=== PATIENT | male | born 1975 | race Caucasian/White ===

== ENCOUNTER 2020-12-29 14:34 | Emergency (ER) | payer OTHER, SELFPAY ==
--- NOTE | 2020-12-29 | ECG_ITS ---
Test Reason : ASTHMA Blood Pressure : / mmHG Vent. Rate : 065 BPM Atrial Rate : 065 BPM P-R Int : 118 ms QRS Dur : 094 ms QT Int : 390 ms P-R-T Axes : 042 050 045 degrees QTc Int : 405 ms Normal sinus rhythm RSR' or QR pattern in V1 suggests right ventricular conduction delay Otherwise normal ECG No previous ECGs available Referred By: Generic ED Physician Electronically Signed By:JUNI KAUR MD
--- NOTE | ~2020-12-29 | XR_ITS ---
EXAMINATION: XR chest 2V CLINICAL INFORMATION: Reason for Exam asthma COMPARISON: No prior chest x-ray available in our system for comparison at the time of this dictation. TECHNIQUE: XR chest 2V Lungs and Yakelin: Both lungs are clear. Pleura: Normal. Costophrenic angles are sharp. No pneumothorax. Heart: The heart is normal in size. Mediastinum: The mediastinum is within normal limits.. Bones: Skeletal structures included are normal for patient's age. XR/XR chest 2V IMPRESSION: No radiographic evidence of acute cardiopulmonary disease.
[2020-12-29 15:15] VITALS: BP 115/71; PULSE 80; RESP 18; TEMP 36.5; O2SAT 98; BMI 26.4
[2020-12-29 18:44] LABS: COVID-19 Test Negative (Negative); IDNOW Serial# 9DD0AD1C
--- NOTE | 2020-12-29 20:53 | ED.ASTHMA ---
HPI - Asthma General Chief Complaint: Asthma Stated Complaint: cough, chest wall pain, sob, hx of asthma Time Seen by Provider: 12/29/20 20:41 Source: patient Mode of arrival: ambulatory Limitations: no limitations History of Present Illness HPI Narrative: Patient comes emergency room complaining of asthma exacerbation. Patient states that he ran out of his albuterol inhaler. Patient states he has plenty albuterol liquid form for his neb treatment. Patient went to work since 2 in the morning, patient has not had any breathing treatment since then. Patient denies fever or chills. Patient started with a mild URI, states he has a young knees that has a URI and everybody in the family got it as well Related Data Previous Rx's Medication Instructions Recorded albuterol sulfate 90 mcg/actuation 2 puff INHALATION Q4-6H PRN #6.7 g 12/29/20 aerosol inhaler guaifenesin 400 mg tablet 400 mg PO Q4H PRN #10 tab 12/29/20 prednisone 50 mg tablet 50 mg PO DAILY #4 tab 12/29/20 Allergies Allergy/AdvReac Type Severity Reaction Status Date / Time Unable to Assess Allergy Verified 12/29/20 20:42 Review of Systems Review of Systems: Constitutional : No Weight loss, No Fever, No Chills, No Night Sweats, No Fatigue, No Malaise ENT/Mouth : No Hearing loss, No Ear Pain, No Nasal Congestion, No Sinus Pain, No Hoarseness, No sore throat, No Rhinorrhea, No Swallowing Difficulty Eyes: No Eye Pain, No Swelling, No Redness, No Foreign Body, No Discharge, No Vision Changes Cardiovascular : No Chest Pain, No SOB, No Dyspnea on Exertion, No Orthopnea, No Edema, No Palpitations Respiratory : Mild dry Cough, No Sputum, complaining of Wheezing, No Smoke Exposure, complaining of dyspnea Gastrointestinal : No Nausea, No Vomiting, No Diarrhea, No Constipation, No abdominal Pain, No Hematochezia, No Melena Genitourinary : no irregular bleeding, No Dysuria, No Urinary Frequency, No Hematuria, No Urinary Incontinence, No Urgency, No Flank Pain, No Urinary Flow Changes, No Hesitancy Musculoskeletal : No joint pain, No Myalgias, No Joint Swelling Skin : No Skin Lesions, No rash Neuro : No Weakness, No Numbness, No Paresthesias, No Loss of Consciousness, No Dizziness, No Headache Psych : No Anxiety/Panic, No Depression, No SI/HI/AH/VH, No Social Issues, Heme/Lymph: No Bruising, No Bleeding,No Lymphadenopathy Endocrine : No Polyuria, No Polydipsia, No Temperature Intolerance [facility] [place] Past Medical History Medical History (Updated 12/29/20 @ 22:46 by Anna Pastor MD) Asthma exacerbation Social History Social History Advance Directives: No Advance Directives Information Provided: No Physical Exam Vital Signs: Vital Signs: Last Vital Signs Temp 97.7 F 12/29/20 15:15 Pulse 80 12/29/20 22:25 Resp 18 12/29/20 15:15 BP 115/71 12/29/20 15:15 Pulse Ox 98 12/29/20 15:15 Body Mass Index 26.4 Const: Other: Appearance: Alert. Oriented X3. No acute distress. Eyes: Pupils equal, round and reactive to light. ENT: Pharynx normal. Neck: Normal inspection. Neck supple. No lymph nodes noted. No crepitus CVS: Normal heart rate and rhythm. Pulses normal. Normal S1 and S2 Respiratory: No respiratory distress. Bilateral wheezing, moderate air movement Abdomen: Soft and nontender. No rigidity. No distention. good BS x4 Skin: Skin warm and dry. Normal skin color. Normal skin turgor. Extremities: No lower extremity edema. No Lacerations. No Rash Neuro: Oriented X 3. No motor deficit. No sensory deficit. Moving all extermities. No slurred speech. Course Course Course Narrative: Patient received 1 albuterol treatment, Solu-Medrol. Patient states that he feels much better, oxygen saturation 99% on room air. No longer wheezing. Chest x-ray negative, COVID negative MDM - Asthma Lab Data Labs: Lab Results 12/29/20 12/29/20 Range/Units 18:21 21:13 COVID-19 ([facility]) Negative Negative (Negative) COVID-19 Clin Com See Note See Note Imaging Data Chest x-ray: Radiologist's impression: TECHNIQUE: XR chest 2V Lungs and Yakelin: Both lungs are clear. Pleura: Normal. Costophrenic angles are sharp. No pneumothorax. Heart: The heart is normal in size. Mediastinum: The mediastinum is within normal limits.. Bones: Skeletal structures included are normal for patient's age. XR/XR chest 2V IMPRESSION: No radiographic evidence of acute cardiopulmonary disease. Discharge Plan Discharge Clinical Impression: Asthma exacerbation Patient Disposition: Home, Self-Care Instructions: Asthma (ED) Additional Instructions: Please follow-up with your primary care physician tomorrow. If you have any worsening or new symptoms, please return to the emergency room or call 911 Prescriptions: New albuterol sulfate 90 mcg/actuation HFA aerosol inhaler 2 puff inhalation Q4-6H PRN (Reason: shortness of breath or wheezing) Qty: 6.7 RF: 1 prednisone 50 mg tablet 50 mg PO DAILY Qty: 4 RF: 0 guaifenesin 400 mg tablet 400 mg PO Q4H PRN (Reason: cough) Qty: 10 RF: 0
[2020-12-29] MEDS: methylPREDNISolone Sod Succ 125 MG/2 ML VIAL IVPUSH (21:23)
[2020-12-29 21:42] LABS: COVID-19 Test Negative (Negative)
[2020-12-29 22:25] VITALS: PULSE 80; O2SAT 97
[2020-12-29] MEDS: Albuterol Sulfate (0.083%) 2.5 MG/3 ML VIAL.NEB 10 MG INHALE (22:25)
== END 2020-12-29 23:25 | disposition home or self-care (01) ==
PROVIDERS: Emergency Provider Emergency Medicine
DX: J45.901 Unspecified asthma with (acute) exacerbation (principal); Z20.822 Contact with and (suspected) exposure to COVID-19
CPT/HCPCS: 36415; 71046; 87635; 93005; 94640; 94644; 96374; 99283; 99284; J2930

== ENCOUNTER 2021-08-16 11:54 | Outpatient (REF) | payer OTHER, SELFPAY ==
[2021-08-16 12:26] LABS: Binax Internal Control QC Valid; Binax Now Covid-19 Ag Positive (Negative)
== END 2021-08-16 11:55 | disposition home or self-care (01) ==
LOC: HO.HMGCLDS 11:54
PROVIDERS: Visit Provider Internal Medicine
DX: Z20.822 Contact with and (suspected) exposure to COVID-19 (principal); J06.9 Acute upper respiratory infection, unspecified
CPT/HCPCS: 87811; C9803